=== PATIENT | female | born 1955 | race Caucasian/White ===

== ENCOUNTER 2017-07-01 06:47 | Day surgery (SDC) | payer BC ==
[2017-07-01] VITALS (13 sets, daily range): BP systolic 102–161; BP diastolic 46–73; PULSE 76–88; RESP 16–26; Ht 157.5 cm; Wt 83.4 kg
[~2017-07-01] VITALS: Ht 157.5 cm; Wt 83.4 kg
[2017-07-01] MEDS ORDERED: ENAL10TA PO (08:13)
[2017-07-01] MEDS ORDERED: METF-480 PO (08:13)
--- NOTE | 2017-07-01 08:42 | RADRPT ---
PROCEDURE: XR Chest. CLINICAL INDICATION: Preoperative TECHNIQUE: Single frontal view of the chest was obtained. COMPARISON: None FINDINGS: The heart is within normal limits. The thoracic aorta is calcified. The lungs are clear. There is no pleural effusion or pneumothorax. RPTAT: AA IMPRESSION: No acute disease. Calcified aorta consistent with atherosclerotic disease. .Roman Berg MD, MD Date Time Electronically viewed and signed by .Roman Berg MD, on 07/01/2017 08:42 .S/
[2017-07-01 08:45] LABS: BASOPHIL # 0.1 10^3/ul (0.0-0.1); BASOPHILS % 0.8 % (0.0-2.0); EOSINOPHILS # 0.1 10^3/ul (0.0-0.5); EOSINOPHILS % 1.3 % (0.0-7.0); HEMATOCRIT 35.9 % (37.0-47.0); HEMOGLOBIN 11.7 g/dl (12.0-16.0); LYMPHOCYTES # 3.1 10^3/ul (0.8-2.9); LYMPHOCYTES % 41.8 % (15.0-51.0); MEAN CORPUSCULAR HGB CONC 32.6 g/dl (32.0-37.0); MEAN CORPUSCULAR VOLUME 92.1 fl (82.0-101.0); MEAN PLATELET VOLUME 9.4 fl (7.4-10.4); MONOCYTE # 0.5 10^3/ul (0.3-0.9); MONOCYTES % 6.5 % (0.0-11.0); NEUTROPHIL # 3.7 10^3/ul (1.6-7.5); NEUTROPHILS % 49.3 % (39.0-77.0); PLATELET COUNT 276 10^3/UL (140-415); RED CELL DISTRIBUTION WIDTH 13.1 % (11.5-14.5); WHITE BLOOD COUNT 7.5 10^3/ul (4.8-10.8)
[2017-07-01 08:58] LABS: INR 0.83; PROTIME 11.5 Sec (11.9-14.9); PT RATIO 0.9
[2017-07-01 08:59] LABS: PARTIAL THROMBOPLASTIN TIME 31.4 Sec (25.0-35.0)
[2017-07-01 09:02] LABS: CHOL/HDL RATIO 3.9 RATIO
[2017-07-01 09:34] LABS: CREATININE 0.91 mg/dl (0.44-1.00); POTASSIUM 4.9 mmol/L (3.5-5.1)
[2017-07-01] MEDS ORDERED: IODIXANOL LOCM 100 ML BTL ONE (10:20)
[2017-07-01] MEDS ORDERED: MIDAZOLAM 1 MG/ML 2 ML INJ ONE (10:20)
[2017-07-01] MEDS ORDERED: LIDOCAINE 1% (MDV) 20 ML INJ ONE (10:20)
[2017-07-01] MEDS ORDERED: VERAPAMIL 5 MG INJ ONE (10:20)
[2017-07-01] MEDS ORDERED: HEPARIN 1000 UNITS/ML 10 ML INJ ONE (10:20)
[2017-07-01] MEDS ORDERED: FENTAnyl 50 MCG/ML VIAL ONE (10:20)
[2017-07-01] MEDS ORDERED: NITROGLYCERIN (IC) 100 MCG/ML INJ ONE (10:20)
--- NOTE | 2017-07-01 11:58 | SIPON ---
Date/Time of Note Date/Time of Note DATE: 07/01/17 TIME: 11:56 Operative Report Preoperative Diagnosis 1.Chest pain 2.abnl mpi Postoperative Diagnosis 1.non-obstructive cad Operation/Procedure Performed 1.[facility] Surgeon see signature line ophthalmic surgical assistant Mack Anesthesia: moderate sedation Estimated blood loss: minimal Transfusion Required none Specimen NA Grafts/Implants none Complications none ZOIE VILLANUEVA Jul 01, 2017 11:57
[2017-07-01] MEDS ORDERED: SOD CHLORIDE 0.9% 1,000 ML IV SCH (12:01)
[2017-07-01] MEDS ORDERED: AL HYDROX/MG HYDROX/SIMETH 30 ML CUP PO PRN (12:30)
[2017-07-01] MEDS ORDERED: ACETAMINOPHEN 325 MG TAB PO PRN (12:30)
[2017-07-01] MEDS ORDERED: ONDANSETRON 4 MG INJ IV PRN (12:30)
--- NOTE | 2017-07-01 12:54 | CARRPT ---
DATE OF PROCEDURE: 07/01/2017 TYPE OF PROCEDURE: 1. Left heart catheterization. 2. Coronary angiography. 3. Measurement of left ventricular end diastolic pressure. ATTENDING PHYSICIAN: Zoie Mcginnis MD. REFERRING PHYSICIAN: Dr. Andreas Castano. INDICATION: Chest pain with positive stress test findings for ischemia, high risk marker for cardio vascular events. TYPE OF ANESTHESIA: Conscious and local. BRIEF HISTORY: Ms. Nunez is a 61-year-old female with history of hypertension, dyslipidemia, diabe meryl mellitus who initially presented with complaints of substernal chest pain and shortness of breat h. The patient subsequently had a cardiac stress test showing positive ischemia. The patient was p laced on medical therapy, continued to have chest pain and therefore, brought to cardiac dorinda terization lab in order to assess the possibility of significant obstructive coronary artery disease lending to symptoms of chest pain and positive stress test findings. PROCEDURE: After informed consent was obtained the patient was brought to [facility] cardiac catheterization lab where she was prepped and draped in the usual sterile fashion. Lido linda 2% was injected into the right radial artery in order to achieve adequate anesthesia. With mo dified Seldinger technique, the radial artery was cannulated and a 6-Armenian arterial sheath was plac ed. A 6-Armenian JL3.5 catheter was used to cannulate the left main coronary ostium. With contrast i njection, multiple views of the left coronary arterial system were obtained. JL3.5 was removed over a guidewire and JR4 was used in an attempt to cannulate the right coronary arterial ostium unsucces sfully. Subsequently, a Liam right, which was used to successfully cannulate the right coronary to ostium. With contrast injection, multiple views of the right coronary system were obtained. Th e Liam right was additionally used to cross the aortic valve, measured LVEDP and pulled back acr oss the aortic valve to assess for significant gradient, which there was not and removed. Subsequen tly, this completed the procedure. The patient's sheath was removed, a TR band was applied. There were no noted complications. FINDINGS: Coronary angiography: Left main 4 mm, no significant stenoses. Circumflex proximally 3 mm vessel w ith no significant focal stenoses and has multiple mid branching obtuse marginals 2.5 mm, no signifi cant stenoses. LAD proximally is a 3.5 mm vessel with no significant focal stenoses. The LAD proxi linn is a 3 mm vessel and has a mid-body, 20% stenosis. The remainder of the LAD is free of signif icant focal stenoses. The right coronary artery proximally is a 3.5 mm vessel and has no significan t focal stenoses. There is a sub 2 mm PDA and a sub 2 mm posterolateral branch each with no signifi cant focal stenoses. All the patient's vessels are very tortuous. Measurement left ventricular end diastolic pressure of 14-16. No significant aortic stenosis by gra dient. TOTAL FLUOROSCOPY: Eight minutes. TOTAL CONTRAST: 80 mL. IMPRESSION: 1. Very mild nonobstructive coronary artery disease. 2. Normal left heart filling pressures. 3. No significant aortic stenosis by gradient. RECOMMENDATIONS: In light of procedure and findings would: 1. Maximize medical guidance. 2. Aggressive risk factor reduction. 3. The patient to be readmitted to same day surgery center post catheterization with discharge late r this afternoon. 4. The patient time was scheduled. We discussed the results of the procedure and assess for any post-catheterization complications. Dictated By: ZOIE LOPEZ/MONICA Conf#: [id number] DID#: [id number] CC: ANDREAS CASTANO MD;*EndCC*
--- NOTE | 2017-07-05 14:23 | RADRPT ---
Vent Rate: 78 bpm RR Interval: 0 msec CO Interval: 168 msec QRS Duration: 84 msec QT Interval: 390 msec QTC Interval: 444 msec P-R-T Rock: 73 - 74 - 66 degrees Normal sinus rhythm Normal ECG Electronically Signed By: Prashanth Blair [id number]
== END 2017-07-01 15:25 | disposition home or self-care (01) ==
LOC: SDS 06:47
PROVIDERS: ATTEND Internal Medicine
DX: I25.10 Atherosclerotic heart disease of native coronary artery without angina pectoris (principal); R94.39 Abnormal result of other cardiovascular function study; I10 Essential (primary) hypertension
CPT/HCPCS: 71010; 80048; 80061; 82962; 85025; 85610; 85730; 93005; 93458; C1887; J1644; J2250; J3010; Q9967; Z7610

== ENCOUNTER 2018-09-14 11:53 | Day surgery (SDC) | payer BC ==
[~2018-09-14] VITALS: Ht 157.5 cm; Wt 83.8 kg
[~2018-09-14 11:53] MED LIST: ENAL10TA PO; METF-480 PO
[2018-09-14 12:51] VITALS: Ht 157.5 cm; Wt 83.8 kg
[2018-09-14] MEDS ORDERED: OMEP20CA16 PO (12:58)
[2018-09-14] MEDS ORDERED: CHOL400T10 PO (12:58)
[2018-09-14] MEDS ORDERED: PRAV20TA2 PO (12:58)
[2018-09-14] MEDS ORDERED: ASPI-903 PO (12:58)
[2018-09-14 13:40] VITALS: BP 105/57; PULSE 83; RESP 18
[2018-09-14] MEDS ORDERED: LIDOCAINE 2% (SDV) 5 ML INJ ONE (14:22)
[2018-09-14] MEDS ORDERED: ETOMIDATE 20 MG INJ ONE (14:22)
[2018-09-14] MEDS ORDERED: PROPOFOL 20 ML ONE (14:22)
[2018-09-14] MEDS ORDERED: FENTAnyl 50 MCG/ML VIAL ONE (14:22)
[2018-09-14] MEDS ORDERED: MIDAZOLAM 1 MG/ML 2 ML INJ ONE (14:22)
--- NOTE | 2018-09-14 14:38 | PREAC ---
Date/Time of Note Date/Time of Note DATE: 09/14/18 TIME: 14:34 Anesthesia Eval and Record Evaluation Time Pre-Procedure Interview DATE: 09/14/18 TIME: 14:34 Age 63 Sex female NPO: 8 hrs Preoperative diagnosis dyspepsia and screening colonoscopy Planned procedure EGD N COLONOSCOPY Past Medical History Past Medical History: Includes Cardio: HTN, Dyslipidemia, CAD Endo: Diabetes GI: Obesity Surgery & Anesthesia Issues No known issue Meds Anticoagulation: No Beta Juanis within 24 hr: No Reason Beta Juanis not given: Pt. not on B-Juanis Reported Medications Omeprazole* (Omeprazole*) 20 Mg Capsule.dr, 20 MG PO DAILY, #30 CAP 09/14/18 Pravastatin Sodium (Pravastatin Sodium) 20 Mg Tablet, 20 MG PO DAILY, TAB 09/14/18 Cholecalciferol* (Vitamin D*) 400 Unit Tablet, 800 UNIT PO DAILY, TAB 09/14/18 Aspirin* (Aspirin* Chew) 81 Mg Tab.chew, 81 MG PO DAILY, TAB.CHEW 09/14/18 Enalapril Maleate* (Enalapril Maleate*) 10 Mg Tablet, 10 MG PO DAILY, TAB 07/01/17 Metformin* (Glucophage*) 850 Mg Tablet, 850 MG PO BID WITH MEALS, #30 TAB 07/01/17 Meds reviewed: Yes Allergies Coded Allergies: No Known Allergy (Unverified , 07/01/17) Allergies Reviewed: Yes Labs/Studies Labs Reviewed: Reviewed by anesthesiologist test: N/A Pre-procedure Exam Last vitals Vital Signs Date Temp Pulse Resp B/P (MAP) Pulse Ox O2 O2 Flow FiO2 Time Delivery Rate 09/14/18 98.0 83 18 105/57 97 Room Air 13:40 (73) Airway: Adequate mouth opening, Adequate thyromental dist Mallampati: Mallampati IV (F) Teeth: Normal Lung: Normal Heart: Normal ASA Physical Status ASA physical status: 3 Emergency: None Pre-operative Attestations Prior to commencing anesthesia and surgery, the patient was re-evaluated, there was verification of: *The patient's identity *The results of appropriate recent lab work and preoperative vital signs *The above evaluation not changing prior to induction *Anesthetic plan, risk benefits, alternative and complications discussed with patient/family; questions answered; patient/family understands, accepts and wishes to proceed. JOHAN DILLON DO Sep 14, 2018 14:38
[2018-09-14] MEDS ORDERED: LABETALOL HCL 20MG INJ IV PRN (15:00)
[2018-09-14] MEDS ORDERED: ONDANSETRON 4 MG INJ IV PRN (15:00)
--- NOTE | 2018-09-14 15:31 | HPN ---
Date/Time of Note Date/Time of Note DATE: 09/14/18 TIME: 15:31 Interval H&P Admission Note Pt. seen H&P reviewed: No system changes HEATHER GONGORA Sep 14, 2018 15:31
[2018-09-14 16:05] VITALS: BP 128/68; RESP 14
--- NOTE | 2018-09-15 14:20 | PAC ---
Date/Time of Note Date/Time of Note DATE: 09/15/18 TIME: 14:19 Post-Anesthesia Notes Post-Anesthesia Note Last documented vital signs Vital Signs Date Temp Pulse Resp B/P (MAP) Pulse Ox O2 O2 Flow FiO2 Time Delivery Rate 09/14/18 98 80 14 120/73) 98 Room Air 1540 09/14/18 98.0 83 13:40 Activity: WNL Respiratory function: WNL Cardiovascular function: WNL Mental status: Baseline Pain reasonably controlled: Yes Hydration appropriate: Yes Nausea/Vomiting absent: Yes JOHAN DILLON DO Sep 15, 2018 14:19
== END 2018-09-14 16:07 | disposition home or self-care (01) ==
LOC: GIL 11:53
PROVIDERS: ATTEND Internal Medicine Gastroenterology
DX: K29.50 Unspecified chronic gastritis without bleeding (principal); K64.8 Other hemorrhoids; K63.89 Other specified diseases of intestine; I10 Essential (primary) hypertension; E11.9 Type 2 diabetes mellitus without complications; I25.10 Atherosclerotic heart disease of native coronary artery without angina pectoris; E78.5 Hyperlipidemia, unspecified; E66.9 Obesity, unspecified; Z68.33 Body mass index [BMI] 33.0-33.9, adult
CPT/HCPCS: 43239; 45378; 82962; 88305; 88312; J2250; J3010; Z7610